=== PATIENT | male | born 1990 | race African-American/Black ===

== ENCOUNTER 2020-09-22 14:30 | Emergency (ER) | payer OTHER, SELFPAY ==
--- NOTE | ~2020-09-22 | CT_ITS ---
EXAMINATION: CT abdomen pelvis w con EXAM DATE: 09/22/2020 18:10 INDICATION: States history of volvulus diagnosed a week ago. Generalized abdominal pain. TECHNIQUE: Spiral CT of the abdomen and pelvis was performed following intravenous injection of 100 m L Omnipaque 350. Axial, coronal and sagittal images of the abdomen and pelvis were reviewed. The do se-length product (DLP) for this examination was 215.62 mGy-cm. The exposure was tailored according to patient size (auto mA exposure control), and iterative reconstruction (ASIR) was used as additiona l dose reduction technique. There is no prior study for comparison. FINDINGS: There is mild periportal edema, nonspecific. Recommend correlating with liver function test s. The liver, spleen, adrenal glands and pancreas are otherwise unremarkable. Gallbladder is unrema rkable. No biliary obstruction. Portal and splenic veins are patent. Kidneys enhance symmetrically . There is no hydronephrosis. The prostate is unremarkable. The bladder is unremarkable. There i s no retroperitoneal or pelvic lymphadenopathy. Can't identify the appendix, paucity of intra-abdominal fat. There is probable short segment ileal in tussusception in the right lower quadrant, approximately 2 cm in length (Finding Indicated axial imag e 131. No obstruction proximal to this. These are typically transient. There is expected amount of co lonic stool. No free intraperitoneal gas. The heart is normal in size. There are no pericardial or pleural effusions. The lung bases are unremarkable. The bones are unremarkable. IMPRESSION: 1. Probable short segment ileal intussusception. These are typically transient. 2. Mild nonspecific periportal edema, recommend correlating with liver enzymes. Reviewed, dictated and finalized at [facility]. IMPRESSION: 1. Probable short segment ileal intussusception. These are typically transient . 2. Mild nonspecific periportal edema, recommend correlating with liver enzymes .
[2020-09-22 14:34] VITALS: BP 140/69; PULSE 75; RESP 18; TEMP 36.9; O2SAT 100
[2020-09-22 14:52] LABS: Basophils Percent Auto 0.8 % (0.2-1.2); Eosinophils Absolute Auto 0.1 K/mm3 (0-0.3); Eosinophils Percent Auto 2.7 % (0-4.4); Hematocrit 39.5 % (42.0-52.0); Hemoglobin 13.6 g/dL (14.0-18.0); Immature Granulocyte Absolute 0.01 K/mm3 (0.00-0.031); Immature Granulocyte Percent A 0.2 % (0-0.5); Lymphocytes Absolute Auto 1.77 K/mm3 (0.9-3.2); Lymphocytes Percent Auto 36.2 % (18.3-44.2); Mean Corpuscular HGB Conc 34.4 g/dl (32-36); Mean Corpuscular Hemoglobin 31.6 pg (26-34); Mean Corpuscular Volume 91.6 fl (80-100); Mean Platelet Volume 10.2 fl (7.4-10.4); Monocytes Absolute Auto 0.5 K/mm3 (0.1-0.6); Monocytes Percent Auto 10.2 % (2.6-8.5); Neutrophils Absolute Auto 2.4 K/mm3 (1.3-6.7); Neutrophils Percent Auto 49.9 % (45.5-73.1); Platelet Count Result 247 k/mm3 (150-375); Red Blood Count 4.31 M/mm3 (4.6-6.20); Red Cell Distribution Width 13.2 % (11.5-14.5); White Blood Count 4.9 K/mm3 (4.5-10.0)
[2020-09-22 15:06] LABS: Alanine Aminotransferase 14 U/L (4-50); Albumin Level 4.5 g/dL (3.5-5.1); Alkaline Phosphatase 56 U/L (38-126); Anion Gap 8 mmol/L (8-16); Aspartate Amino Transferase 28 U/L (17-59); Bilirubin,Total 0.6 mg/dL (0.2-1.3); Blood Urea Nitrogen 12 mg/dL (9-20); Calcium 9.2 mg/dL (8.4-10.2); Carbon Dioxide 24 mmol/L (22-30); Chloride 109 mmol/L (98-107); Estimated CRCL calculation 62 ml/min; Estimated Glomerular Filt Rate 56; Glucose 90 mg/dL (75-110); Lipase 200 U/L (23-300); Potassium 4.5 mmol/L (3.4-5.0); Sodium 141 mmol/L (137-145)
[2020-09-22] MEDS: SODIUM CHLORIDE 0.9% IV 1,000 ML 999 ML IV CONT (16:23)
[2020-09-22] MEDS: HYOSCYAMINE SULFATE 0.125 MG TABLET PO (16:23)
[2020-09-22 16:41] LABS: Add Urine Microscopic? NO; Appearance Urine Clear (Clear); Bilirubin Urine Negative (Negative); Blood Urine Negative (Negative); Color Urine Yellow (Yellow); Glucose Urine UA Negative (Negative); Ketones Urine Negative (Negative); Leukocyte Esterase Ur Negative LEU/UL (Negative); Nitrate Urine Negative (Negative); Protein Urine Negative (Negative); Specific Grav Ur 1.013 (1.001-1.035); Urobilinogen Urine Negative mg/dL (<2.0)
[2020-09-22 17:47] VITALS: BP 137/69; PULSE 60; RESP 18; O2SAT 97
--- NOTE | 2020-09-22 19:46 | ED.GENADULT ---
HPI - General Adult General Chief complaint: Abdominal Pain Stated complaint: abd pain x1 year Time Seen by Provider: 09/22/20 15:14 Source: patient and RN notes reviewed Mode of arrival: ambulatory Limitations: no limitations History of Present Illness HPI narrative: Patient is a 29-year-old male who presents for evaluation of abdominal pain that has been present now for 1 month patient notes that he had been seen at [facility] and they diagnosed him with intussusception and he was going to have potential surgery but ended up leaving the hospital. Patient notes that he in the recent days went to [facility] and had a CAT scan which was unremarkable and was discharged home with medications. Patient notes that he has lost weight in the recent past is unsure as to the etiology of this. Patient notes that his doctor has him set up to see gastroenterology in early October. Patient notes he has continued to have abdominal pain without vomiting rectal bleeding melena. Patient denies similar occurrence in the past. Patient is currently not taking anything for his symptoms. Pain is localized to the abdomen Related Data Home Medications Medication Instructions Recorded Confirmed rhrrudozd-xuhrozaa-btywwff ala 1 tablet PO DAILY 09/22/20 [Biktarvy] Allergies Allergy/AdvReac Type Severity Reaction Status Date / Time No Known Allergies Allergy Verified 09/22/20 14:38 Review of Systems Review of Systems: All systems reviewed & are unremarkable except as noted in HPI and below PMFSH Past Medical History Medical History (Updated 09/22/20 @ 19:52 by Austyn Ricketts PA-C) HIV (human immunodeficiency virus infection) Social History Social History (Updated 09/22/20 @ 19:47 by Austyn Ricketts PA-C) Smoking status: Never smoker Gender identity (if verbalized by the patient): Male Exam Narrative: Exam Narrative: GENERAL: Well-appearing, well-nourished, and in no acute distress. HEAD: Normocephalic, atraumatic. EYES: PERRLA and EOMI. ENT: Nares clear, no rhinorrhea or epistaxis. Mucous membranes moist. CHEST: Clear to auscultation. No respiratory distress. No wheezes rales or rhonchi HEART: Regular rate and rhythm. No murmur heard. Normal peripheral pulses. ABDOMEN: Soft, mild tenderness of the abdomen no rebound or guarding, nondistended, normal active bowel sounds. EXTREMITIES: Normal range of motion. No edema. SKIN: Warm, dry, no rash. NEURO: No focal deficits. Alert and oriented x3. PSYCH: Normal mood and affect. Course Course Emergency Course: Patient evaluated the emergency department no high risk changes in his blood work the CAT scan findings were discussed with general surgery and gastroenterology both of who recommend that the patient follow-up with his primary care for specialty referrals and that he does not require admission at this time or acute surgery for his findings on CAT scan. Patient is agreeing with this treatment plan and will follow with his primary care. Patient will be given GI and surgery referrals. Patient notes that he will follow with his primary care doctor was given a copy of his CAT scan findings. Patient was given the recommendations of the general surgeon. Patient is afebrile nontoxic-appearing no distress. ABCs and vital signs intact and stable Consultations Consultation #1: Discussed case with gastroneurology Dr. Herr who recommends the patient follow-up with his current plan as well as with his primary care Discussed case with Dr. Ann the general surgeon who reviewed the case findings and imaging and recommends that the patient can follow-up on an outpatient basis adhere to a bland light liquid diet for the next several days also recommends giving the patient a copy of his CT imaging to take to his primary care and GI referral. Notes that the patient does not require surgery at this time for his findings Date: 09/22/20 Time: 19:49 Vital Signs
[2020-09-22 20:03] VITALS: BP 135/65; PULSE 64; RESP 17; O2SAT 98
== END 2020-09-22 20:07 | disposition home or self-care (01) ==
PROVIDERS: Emergency Medicine; Emergency Provider Emergency Medicine
DX: K56.1 Intussusception (principal); Z21 Asymptomatic human immunodeficiency virus [HIV] infection status
CPT/HCPCS: 36415; 74177; 80053; 81003; 83690; 85025; 96365; 99284; A9270; J0131; J7030; Q9967

== ENCOUNTER → 2020-12-04 00:23 | Outpatient (CLI) | payer OTHER, SELFPAY ==
[2020-12-04 18:40] LABS: SARS-CoV-2 RNA PCR Negative
== END ==
PROVIDERS: Visit Provider Internal Medicine Gastroenterology
DX: Z20.822 Contact with and (suspected) exposure to COVID-19 (principal)
CPT/HCPCS: C9803; U0003; U0005

== ENCOUNTER 2020-12-07 01:24 | Day surgery (SDC) | payer OTHER, SELFPAY ==
[2020-11-30 10:50] VITALS: BMI 22.1
--- NOTE | 2020-12-07 08:27 | WPDANESEPPF ---
Anes - Initial Pre Proc Eval Procedure: Operation Date: 12/07/20 10:30 Proposed Procedures p Colonoscopy - Victor M Rosario MD Date/Time: 12/07/20 08:27 Surgeon: Victor M Rosario MD Pre Op Diagnosis: abdominal pain Patient Data Age: 29 Gender: M Height: 1.75 m Weight: 68 kg Allergies Allergy/AdvReac Type Severity Reaction Status Date / Time No Known Allergies Allergy Verified 12/07/20 09:14 Home Medications Medication Instructions Recorded Confirmed Type fjmcoyelo-wpcxbujj-mtjvpnu ala 1 tablet PO DAILY 09/22/20 11/30/20 History [Biktarvy] Patient hx anesthesia problems: none Family hx anesthesia problems: none PMFSH Past Medical History Medical History Depression History of nonoperative reduction of intussusception HIV (human immunodeficiency virus infection) HIV (human immunodeficiency virus infection) PTSD (post-traumatic stress disorder) Smoker Social History Social History Smoking packs per day: 1 Smoking cigarettes per day: 20.0 Smoking status: Current every day smoker Tobacco type: cigarettes Alcohol intake: unknown Substance use: current Substance use type: marijuana Living arrangements: with family Gender identity (if verbalized by the patient): Male Spiritual care concerns: No Anes - Eval Final PreProcedure Day of Procedure 12/07/20 08:27 Patient weight: normal Heart: regular rate and rhythm Lungs: clear to auscultation and normal air movement Airway: Mallampati scale class II Neurological: alert and oriented Last oral intake: >/= 8 hours ASA classification: III Emergent: no Anesthetic plan: proceed Anesthesia type and monitoring: general GIVS Informed Consent: The patient's anesthetic plan and its attendant risks and benefits were discussed with the patient/family/POA. Questions were solicited and answers provided to the satisfaction of the patient/family/POA.
[2020-12-07 09:16] VITALS: BP 130/72; PULSE 53; RESP 16; TEMP 36.2; O2SAT 100; BMI 20.9
[2020-12-07] MEDS: LACTATED RINGERS 1,000 ML 150 ML IV CONT (09:30)
--- NOTE | 2020-12-07 09:40 | PM.HPGS ---
History of Present Illness History of Present Illness Consent: Risks, benefits, and alternatives have been discussed and questions answered. Patient agrees to proceed with procedure. Chief complaint: abdominal pain Narrative: Laurent Mari is a 29 year old male With the change in bowel habits accompanied by abdominal pain. He recently had an abnormal CT scan showing an intussusception of the small bowel, but that resolved spontaneously. Review of Systems Review of Systems: All systems reviewed & are unremarkable except as noted in HPI and below PMFSH Past Medical History Medical History Depression History of nonoperative reduction of intussusception HIV (human immunodeficiency virus infection) HIV (human immunodeficiency virus infection) PTSD (post-traumatic stress disorder) Smoker Social History Social History Smoking packs per day: 1 Smoking cigarettes per day: 20.0 Smoking status: Current every day smoker Tobacco type: cigarettes Alcohol intake: unknown Substance use: current Substance use type: marijuana Living arrangements: with family Gender identity (if verbalized by the patient): Male Spiritual care concerns: No Meds Home Medications and Allergies Home Medications Medication Instructions Recorded Confirmed Type ojzaycpml-axxyfawv-aqoktfr ala 1 tablet PO DAILY 09/22/20 11/30/20 History [Biktarvy] Allergies Allergy/AdvReac Type Severity Reaction Status Date / Time No Known Allergies Allergy Verified 12/07/20 09:14 Vital Signs Vital Signs - 24 hr 12/07/20 09:16 Temperature 36.2 C L Pulse Rate 53 L Respiratory Rate 16 Blood Pressure 130/72 Pulse Oximetry 100 Exam Resp: Auscultation: clear to auscultation bilaterally Cardio: Rate: regular rate Rhythm: regular rhythm GI: GI Palp: Yes Soft to palpation and No Tenderness to palpation present (GI) Assessment and Plan Assessment and plan (1) Change in bowel habits: Code(s): R19.4 - Change in bowel habit Status: Acute Assessment and Plan: Colonoscopy with possible biopsy or polypectomy or cautery or injection of substances.
[2020-12-07 10:33] VITALS: BP 91/46; PULSE 61; RESP 23; O2SAT 100
[2020-12-07 10:43] VITALS: BP 93/48; PULSE 54; RESP 21; O2SAT 100
[2020-12-07 10:53] VITALS: BP 93/54; PULSE 58; RESP 25; O2SAT 96
[2020-12-07 11:03] VITALS: BP 116/74; PULSE 79; RESP 18; O2SAT 98
[2020-12-11 10:52] LABS: ANCA Screen Negative (Negative); Myeloperoxidase Ab <1.0 AI (<1.0); Proteinase-3 Ab <1.0 AI (<1.0); S cerevisiae Ab (IgA) 3.6 U (<=20.0); S cerevisiae Ab (IgG) 4.4 U (<=20.0)
[2020-12-12 11:15] LABS: Gliadin AB, IgG 3 Units (<20); Reticulin IgA Negative (Negative); TTG IGA AB 1 U/mL (<4)
== END 2020-12-07 12:21 | disposition home or self-care (01) ==
PROVIDERS: Visit Provider Internal Medicine Gastroenterology
PROC: 0DJD8ZZ Inspection of Lower Intestinal Tract, Via Natural or Artificial Opening Endoscopic (ICD-10-PCS; CPT 45378; principal; 2020-12-07 10:30)
DX: R19.4 Change in bowel habit (principal); K64.8 Other hemorrhoids; Z21 Asymptomatic human immunodeficiency virus [HIV] infection status; F43.10 Post-traumatic stress disorder, unspecified; F32.9 Major depressive disorder, single episode, unspecified; F17.210 Nicotine dependence, cigarettes, uncomplicated; F12.90 Cannabis use, unspecified, uncomplicated
CPT/HCPCS: 45378; 36415; 83516; 86021; 86255; 86671; J2704; J7120

== ENCOUNTER 2020-12-25 08:12 | Outpatient (CLI) | payer OTHER, SELFPAY ==
--- NOTE | ~2020-12-25 | XR_ITS ---
XR UGIAC w small bowel DATE: 12/25/2020 10:20 INDICATION: Generalized abdominal pain. Probable short segment ileal intussusception reported on 2020 CT abdomen pelvis TECHNIQUE: Air-contrast upper gastrointestinal series. Small bowel follow-through. 3.8 minutes fluoroscopy time 107 images DAP: 50.471 COMPARISON: 09/22/2020 CT abdomen pelvis FINDINGS: No stricture, mucosal fold thickening, erosion, ulceration or intraluminal mass lesion of t he esophagus fills, stomach or duodenum is detected. No small bowel stricture, abnormal dilatation, obstruction, diverticulum or mucosal fold thickening i s evident. The terminal ileum appears normal. No intussusception is demonstrated. IMPRESSION: Normal examination Reviewed, dictated and finalized at [facility]. Reviewed, dictated and finalized at location [facility]. IMPRESSION: Normal examination
== END 2020-12-25 08:13 | disposition home or self-care (01) ==
PROVIDERS: Visit Provider Internal Medicine Gastroenterology
DX: Z92.89 Personal history of other medical treatment (principal)
CPT/HCPCS: 74246; 74248